=== PATIENT | female | born 1940 | race Caucasian/White ===

== ENCOUNTER 2017-09-07 10:46 | Emergency (ER) | payer OTHER ==
[~2017-09-07] VITALS: Ht 152.4 cm; Wt 76.2 kg
[~2017-09-07 10:46] MED LIST: ALBUTEROL SULF8.5 GM IH; ASPIR-LOW81 MG PO; ASPIR-TRIN325 M1 PO; B-125000 MCG PO; CELEBREX200 MG PO; COZAAR50 MG PO; CYANOCOBALAM1000 MCG PO; DILTIAZEM 24HR120 MG PO; DIOVAN160 MG PO; DIOVAN40 MG PO; DIOVAN80 MG PO; HYDRALAZINE HCL50 M1 PO; HYDROCODON-ACE1 EACH PO; KLONOPIN0.5 M1 PO; LEXAPRO10 MG PO; PROTONIX40 MG PO; Tylenol Regular Stre PO; ULTRAM50 MG PO; Zocor PO
[2017-09-07] MEDS ORDERED: NEURONTIN300 MG PO (13:18)
[2017-09-07 13:57] VITALS: BP 157/72
== END 2017-09-07 13:57 | disposition home or self-care (01) ==
LOC: EME 10:46
DX: G50.0 Trigeminal neuralgia (principal); Z86.73 Personal history of transient ischemic attack (TIA), and cerebral infarction without residual deficits; M19.90 Unspecified osteoarthritis, unspecified site; K21.9 Gastro-esophageal reflux disease without esophagitis; I10 Essential (primary) hypertension; F41.9 Anxiety disorder, unspecified; F32.9 Major depressive disorder, single episode, unspecified; Z79.82 Long term (current) use of aspirin; Z88.8 Allergy status to other drugs, medicaments and biological substances
CPT/HCPCS: 85651